=== PATIENT | male | born 1945 | race Caucasian/White ===

== ENCOUNTER 2023-03-17 07:37 | Day surgery (SDC) | payer OTHER, MEDICARE ==
[2023-03-12 17:14] VITALS: BMI 25.0
[2023-03-17] MEDS: CYCLOPENTOLATE 2% OPHTH SOLN 2 ML BOTTLE ONE ×3 (07:55→08:05)
[2023-03-17] MEDS: CIPROFLOXACIN 0.3% EYE DROPS 5 ML BOTTLE ONE ×3 (07:55→08:05)
[2023-03-17] MEDS: PHENYLEPHRINE 2.5% OPTHALMIC DROP 2ML BOTTLE ONE ×3 (07:55→08:05)
[2023-03-17] MEDS: TROPICAMIDE 1% OPHTH SOLN 15 ML BOTTLE ONE ×3 (07:55→08:05)
[2023-03-17] MEDS ORDERED: TETRACAINE 0.5% OPHTH SOLN 2 ML BOTTLE ONE (08:39)
[2023-03-17] MEDS ORDERED: LIDOCAINE 1% P/F 10 MG/ML VIAL ONE (08:39)
[2023-03-17] MEDS ORDERED: CARBACHOL 0.01% INTRA-OCULAR 1.5 ML VIAL ONE (08:39)
[2023-03-17] MEDS ORDERED: BSS (NA/CA/MG/K) BALANCED SALT SOLUTION OPHTH SOLN 15 ML BOTTLE ONE (08:39)
[2023-03-17] MEDS ORDERED: NEO/POLYMYX B SULF/DEXAMETH OPHTHALMIC 5ML BOTTLE ONE (08:39)
[2023-03-17] MEDS ORDERED: MIDAZOLAM HCL 2 MG/2 ML SINGLE DOSE VIAL ONE (08:48)
[2023-03-17 10:02] VITALS: TEMP 97.9
[2023-03-17 10:06] VITALS: BP 160/87
[2023-03-17 10:08] VITALS: PULSE 58; RESP 19
== END 2023-03-17 10:10 | disposition home or self-care (01) ==
LOC: FASU 07:37
PROVIDERS: ATTEND Ophthalmology
PROC: 08RJ3JZ Replacement of Right Lens with Synthetic Substitute, Percutaneous Approach (ICD-10-PCS; principal; 2023-03-17 09:22)
DX: H26.8 Other specified cataract (principal)
CPT/HCPCS: 66984; V2632

== ENCOUNTER 2023-08-18 09:27 | Day surgery (SDC) | payer OTHER, MEDICARE ==
[2023-08-11 14:27] VITALS: BMI 25.0
[2023-08-18 10:09] VITALS: RESP 18
[2023-08-18] MEDS: TROPICAMIDE 1% OPHTH SOLN 15 ML BOTTLE ONE ×3 (10:10→10:20)
[2023-08-18] MEDS: PHENYLEPHRINE 2.5% OPTHALMIC DROP 2ML BOTTLE ONE ×3 (10:10→10:20)
[2023-08-18] MEDS: CIPROFLOXACIN 0.3% EYE DROPS 5 ML BOTTLE ONE ×3 (10:10→10:20)
[2023-08-18] MEDS: CYCLOPENTOLATE 2% OPHTH SOLN 2 ML BOTTLE ONE ×3 (10:10→10:20)
[2023-08-18] MEDS ORDERED: BSS (NA/CA/MG/K) BALANCED SALT SOLUTION OPHTH SOLN 15 ML BOTTLE ONE (10:14)
[2023-08-18] MEDS ORDERED: TETRACAINE 0.5% OPHTH SOLN 2 ML BOTTLE ONE (10:14)
[2023-08-18] MEDS ORDERED: NEO/POLYMYX B SULF/DEXAMETH OPHTHALMIC 5ML BOTTLE ONE (10:14)
[2023-08-18] MEDS ORDERED: CARBACHOL 0.01% INTRA-OCULAR 1.5 ML VIAL ONE (10:14)
[2023-08-18] MEDS ORDERED: LIDOCAINE 1% P/F 10 MG/ML VIAL ONE (10:14)
[2023-08-18] MEDS ORDERED: MIDAZOLAM HCL 2 MG/2 ML SINGLE DOSE VIAL ONE (11:22)
[2023-08-18 12:07] VITALS: TEMP 97.6
[2023-08-18 13:01] VITALS: BP 149/74; PULSE 78
== END 2023-08-18 12:30 | disposition home or self-care (01) ==
LOC: FASU 09:27
PROVIDERS: ATTEND Ophthalmology
PROC: 08RK3JZ Replacement of Left Lens with Synthetic Substitute, Percutaneous Approach (ICD-10-PCS; principal; 2023-08-18 11:33)
DX: H26.8 Other specified cataract (principal); H21.542 Posterior synechiae (iris), left eye
CPT/HCPCS: 66982; V2632